=== PATIENT | male | born 2000 | race African-American/Black ===

== ENCOUNTER 2023-08-23 10:49 | Emergency (ER) | payer OTHER ==
[~2023-08-23] VITALS: Ht 172.7 cm; Wt 82.8 kg
[2023-08-23 10:50] VITALS: BP 141/70; TEMP 97.6; O2SAT 100
[2023-08-23] MEDS: FLUORESCEIN OPHTH 1MG STRIP OS ONE (13:00)
[2023-08-23] MEDS: TETRACAINE 0.5% OPHTH SOLN 4ML OS ONE (13:00)
[2023-08-23] MEDS ORDERED: AMOX875T2 PO (13:26)
[2023-08-23] MEDS: AUGMENTIN 875 MG TAB PO ONE (13:26)
[2023-08-23] MEDS: OFLOXACIN 0.3 % (OCUFLOX) OPTH SOL 5ML OS STA (13:34)
== END 2023-08-23 13:37 | disposition home or self-care (01) ==
LOC: M ED 10:49 → EDBD 10:49 → M ED 13:37
DX: L03.213 Periorbital cellulitis (principal); H53.8 Other visual disturbances